=== PATIENT | male | born 1955 | race African-American/Black ===

== ENCOUNTER 2019-06-30 06:23 | Day surgery (SDC) | payer MEDICARE, MEDICAID ==
[~2019-06-30] VITALS: Ht 175.3 cm; Wt 90.7 kg
[~2019-06-30 06:23] MED LIST: BUPR300T52 PO; GABA-290 PO; GABA-529 PO; TAMS-11 PO
[2019-06-30] MEDS ORDERED: LACTATED RINGERS 1,000 ML IV SCH (06:30)
[2019-06-30] MEDS ORDERED: METOCLOPRAMIDE HCL 10MG/2ML VIAL ONE (07:39)
[2019-06-30] MEDS ORDERED: GLYCOPYRROLATE 0.2 MG/ML 2ML VIAL ONE (07:39)
[2019-06-30] MEDS ORDERED: PROPOFOL 200MG/20ML VIAL IV ONE (07:39)
[2019-06-30] MEDS ORDERED: ONDANSETRON HCL 4MG/2ML INJ ONE (07:39)
[2019-06-30] MEDS ORDERED: MIDAZOLAM HCL 2 MG/2 ML VIAL ONE (07:39)
[2019-06-30] MEDS ORDERED: LIDOCAINE HCL/PF 1% 10 MG/ML 5ML VIAL ONE (07:39)
[2019-06-30] MEDS ORDERED: FENTANYL CITRATE/PF 50MCG/ML 2ML VIAL ONE (07:39)
[2019-06-30] MEDS ORDERED: SUCCINYLCHOLINE CHLORIDE 200MG/10ML IV ONE (07:39)
[2019-06-30] MEDS ORDERED: SODIUM CHLORIDE 0.9% 1,000 ML IV ONE (08:17)
[2019-06-30] MEDS ORDERED: HYDROMORPHONE HCL/PF 2MG/ML CPJ IV PRN (08:30)
[2019-06-30] MEDS ORDERED: MEPERIDINE HCL/PF 25MG/ML CPJ IV PRN (08:30)
[2019-06-30] MEDS ORDERED: ONDANSETRON HCL 4MG/2ML INJ IV PRN (08:30)
== END 2019-06-30 11:25 | disposition home or self-care (01) ==
LOC: OR 06:23
PROVIDERS: ATTEND Urology
DX: N35.919 Unspecified urethral stricture, male, unspecified site (principal); N18.2 Chronic kidney disease, stage 2 (mild); Z79.899 Other long term (current) drug therapy
CPT/HCPCS: 52276; J0330; J2250; J2405; J2704; J2765; J3010; J3490